=== PATIENT | female | born 1955 | race African-American/Black ===

== ENCOUNTER → 2018-10-13 | Outpatient (CLI) | payer OTHER | LOC: M.RAD 12:46 | DX: Z12.31 Encounter for screening mammogram for malignant neoplasm of breast (principal) ==

== ENCOUNTER → 2019-10-16 | Outpatient (CLI) | payer OTHER | LOC: M.RAD 10:21 | DX: Z12.31 Encounter for screening mammogram for malignant neoplasm of breast (principal) ==

== ENCOUNTER → 2020-02-19 | Outpatient (CLI) | payer OTHER | LOC: M.RAD 02-13 07:44 | DX: N60.02 Solitary cyst of left breast (principal); N64.89 Other specified disorders of breast ==

== ENCOUNTER → 2020-11-12 | Outpatient (CLI) | payer OTHER, BC, MEDICARE | LOC: M.RAD 13:57 | PROVIDERS: ATTEND Family Medicine | DX: Z12.39 Encounter for other screening for malignant neoplasm of breast (principal); R92.2 Inconclusive mammogram ==

== ENCOUNTER → 2021-12-16 | Outpatient (CLI) | payer BC | LOC: M.RAD 11:59 | PROVIDERS: ATTEND Family Medicine | DX: Z12.31 Encounter for screening mammogram for malignant neoplasm of breast (principal) ==